=== PATIENT | female | born 1990 | race Caucasian/White ===

== ENCOUNTER 2016-07-08 11:11 | Emergency (ER) | payer MEDICAID ==
[~2016-07-08 11:11] MED LIST: HYDROCORTISONE CREAM TP; MOTRIN-DPS800 MG PO; NEWMANS NIPPLE CREAM TP; PRENATAL VITAM1 EAC1 PO; TYLENOL #3 DPS1 TAB PO
--- NOTE | 2016-07-15 11:01 | ER ---
ADMIT: 07/08/2016 RM/LOC: ER [facility] MR#: [id number] [facility] [address] [place], [place] [id number] ANNA [address]REU [address] [place] [address] Emergency Room Report SEX: F AGE: 25 : 1990 DATE: 07/08/2016 The patient is a 25-year-old female, complaining of pelvic pain for 14 days now. She denies any discharge, whether it is bleeding or otherwise. Denies any frequency on urination, blood in the urine, discomfort with urination. She says she has had nausea throughout her and this is very similar to her first . REVIEW OF SYSTEMS: Otherwise negative. She did complain of nausea and vomiting yesterday. PAST MEDICAL HISTORY: Abnormal Paps, she has had a history of asthma, . MEDICATIONS: She is taking prenatals. ALLERGIES: ROCEPHIN, LATEX, AND SULFA. PHYSICAL EXAMINATION: GENERAL: Well-nourished and well-developed female. Mildly anxious. VITAL SIGNS: Blood pressure 139/90, heart rate is 93, respirations 16, temp is 97.7, and O2 sats 100%. Points to the suprapubic area. No specific right or left area. PELVIC: Cervical os is closed. No active bleeding noted. There is, however, some brownish discharge. No cervical motion tenderness. BACK: Normal inspection. HEENT: Normal inspection. NECK: Supple. EXTREMITIES: Nontender. No edema noted. NEUROLOGIC: Oriented x4. The patient says she has an appointment in July for her [facility]. She tried to go see Dr. Wong yesterday. Mentions that last week, she tried to go to different hospitals and nobody will see her. I could not find out specifically why she mentioned that nobody could see her except that she has an appointment in July and obviously has not been able to get a followup with anyone in town, so she decided to come to the emergency room today. LABORATORY DATA: CBC within normal limits. Chemistry is normal. We did do a pelvic exam with swabs negative wet prep, GC and chlamydia negative as well. ADMIT: 07/08/2016 RM/LOC: ER [facility] MR#: [id number] [facility] [address] [place] [id number] AN[address] [place] [id number] Emergency Room Report SEX: F AGE: 25 : 1990 Her beta HCG is 1294 with urine positive for red cells 2 cells and ketones 2+. CLINICAL IMPRESSION: Early , pelvic discomfort, mild dehydration, and hyperemesis, suspected hyperemesis gravidarum. She was given instructions to follow up with her primary provider. We did do discuss her labs with the beta HCG also addressed. I did give her 5 Zofran for nausea and vomiting and then explained to her that this is not something that we want her to be taking for prison in her . She is advised to take some Unisom and B6 which is similar to Diclegis prescribed by [facility] [employer]. Advised to have the labs repeated in 1 week to see if beta HCG was doubling in numbers. Tylenol for pain. Hydration. The patient verbalized understanding of the instructions and willing follow up with primary provider. Return as needed. MADDISON Gonzalez / Jad Menon MD / modl JOB #: [id number] CC: Jad Menon MD, Attending Physician UNKNOWN, Family Physician
== END 2016-07-08 15:25 | disposition home or self-care (01) ==
LOC: ER 11:11
DX: O21.1 Hyperemesis gravidarum with metabolic disturbance (principal); E86.0 Dehydration; O99.89 Other specified diseases and conditions complicating pregnancy, childbirth and the puerperium; R10.2 Pelvic and perineal pain; O99.511 Diseases of the respiratory system complicating pregnancy, first trimester; J45.909 Unspecified asthma, uncomplicated; Z88.1 Allergy status to other antibiotic agents